=== PATIENT | female | born 1940 | race Caucasian/White ===

== ENCOUNTER → 2018-02-05 | Outpatient (CLI) | payer MEDICARE ==
[~2018-02-05] MED LIST: ACET500 PO; ALBIPROI INH; AMIT50 PO; ATEN25; ATEN25 PO; ATENOLOL PO; AZELASTINE137 MCG/0.; Ativan0.5 MG PO; BUPR100 PO; BUPR75; CALCIUM CITRAT1 EAC6 PO; CALCIUM/MAG/ZINC; CALMAGZIN PO; CHLO4 PO; CHOL10002 PO; CITA20; CLARITIN10 MG PO; CLON.5; CLON.5 PO; CODEINE; CONEST.625; D-MANNOSE1 GM PO; FLAX PO; FLAX SEED OIL1000 MG PO; FLAXSEED MEAL; FLONASE PO; FLUT.05NI; FOLI1 PO; Flonase 0.05% N16 GM INH; GABA300 PO; GABA400; GLUCHON PO; HYDACE7.5 PO; HYDSUL200; HYDSUL200 PO; MAGOXI400 PO; MELA3 PO; MELATONIN PO; METHOTREXATE; METHOTREXATE SQ; Motion Sickness25 M1 PO; OCUVITE ADULT1 EACH PO; OMEP40CA12; PROBIOTIC1 EAC2 PO; PROMETHAZINE; PSYL5.85P PO; Percocet 5-3251 EACH PO; SERT100 PO; SINUS PE DECONG10 MG PO; TRAZ50 PO; TRIM100 PO; VITAMIN C500 MG PO; Vitamin D PO; Zofran Odt4 MG SL; [UNRECOGNIZED DRUG - OTHER]
[2018-02-05 13:08] LABS: Source, Urine Clean Catch
[2018-02-05 15:34] LABS: Bilirubin, Urine Neg (Neg); Blood, Urine Neg (Neg); Glucose Qualitative, Urine Neg (Neg); Ketones, Urine Neg (Neg); Leukocyte Esterase, Urine Neg (Neg); Nitrite, Urine Neg (Neg); Protein, Urine Neg (Neg); Specific Gravity, Urine 1.005 (1.003-1.022); Urobilinogen, Urine NORM (Normal); pH, Urine 6.5 (5.0-8.0)
[2018-02-05 15:42] LABS: Appearance, Urine Clear (Clear); Color, Urine Yellow (P-Yellow)
== END ==
LOC: OLS 11:30 → LAB SHORT 11:30 → LAB FUT 02-05 12:20 → EDSTATUS 02-05 12:20
PROVIDERS: Physician Assistant
DX: N30.01 Acute cystitis with hematuria (principal)
CPT/HCPCS: 81003; 87086

== ENCOUNTER → 2018-03-17 | Outpatient (CLI) | payer MEDICARE ==
[~2018-03-17] MED LIST changes: -ACET500 PO; -Ativan0.5 MG PO; -BUPR100 PO; -CALCIUM CITRAT1 EAC6 PO; -CHOL10002 PO; -CLARITIN10 MG PO; -CLON.5 PO; -D-MANNOSE1 GM PO; -FLAX SEED OIL1000 MG PO; -Flonase 0.05% N16 GM INH; -GABA300 PO; -HYDSUL200 PO; -MAGOXI400 PO; -Motion Sickness25 M1 PO; -OCUVITE ADULT1 EACH PO; -PROBIOTIC1 EAC2 PO; -SERT100 PO; -SINUS PE DECONG10 MG PO; -TRIM100 PO; -VITAMIN C500 MG PO; -Zofran Odt4 MG SL
== END ==
LOC: LAB 16:09 → LAB SHORT 16:09
DX: N39.0 Urinary tract infection, site not specified (principal)
CPT/HCPCS: 87077; 87086; 87186

== ENCOUNTER 2018-12-18 11:25 | Emergency (ER) | payer MEDICARE ==
[~2018-12-18] VITALS: Ht 152.4 cm; Wt 54.4 kg
[~2018-12-18 11:25] MED LIST changes: +ACET500 PO; +Ativan0.5 MG PO; +BUPR100 PO; +CALCIUM CITRAT1 EAC6 PO; +CHOL10002 PO; +CLARITIN10 MG PO; +CLON.5 PO; +D-MANNOSE1 GM PO; +FLAX SEED OIL1000 MG PO; +Flonase 0.05% N16 GM INH; +GABA300 PO; +HYDSUL200 PO; +MAGOXI400 PO; +Motion Sickness25 M1 PO; +OCUVITE ADULT1 EACH PO; +PROBIOTIC1 EAC2 PO; +SERT100 PO; +SINUS PE DECONG10 MG PO; +TRIM100 PO; +VITAMIN C500 MG PO; +Zofran Odt4 MG SL
[2018-12-18 12:25] LABS: BASOPHILS ABSOLUTE AUTO 0.06 K/mm3 (0.00-0.23); BASOPHILS PERCENT AUTO 1 % (0-2); EOSINOPHILS ABSOLUTE AUTO 0.02 K/mm3 (0.00-0.68); EOSINOPHILS PERCENT AUTO 0 % (0-6); Hematocrit 39.3 % (33.0-51.0); Hemoglobin 12.9 g/dL (11.5-16.0); IMMATURE GRAN ABSOLUTE AUTO 0.03 K/mm3 (0.00-0.10); IMMATURE GRAN PERCENT AUTO 0 % (0-1); LYMPHOCYTES ABSOLUTE AUTO 0.82 K/mm3 (0.84-5.20); LYMPHOCYTES PERCENT AUTO 7 % (21-46); MONOCYTES ABSOLUTE AUTO 0.73 K/mm3 (0.16-1.47); MONOCYTES PERCENT AUTO 6 % (4-13); Mean Corpuscular HGB 30.8 pg (26.0-34.0); Mean Corpuscular HGB Conc 32.8 g/dL (31.5-36.5); Mean Corpuscular Volume 94 fL (80-100); Mean Platelet Volume 12.1 fL (9.1-12.4); NEUTROPHILS ABSOLUTE AUTO 9.81 K/mm3 (1.96-9.15); NEUTROPHILS PERCENT AUTO 86 % (41-73); Platelet Count 181 K/mm3 (150-400); RDW Coefficient Variation 11.8 % (11.7-14.2); RDW Standard Deviation 40.2 fL (35.1-46.3); Red Blood Cell Count 4.19 M/mm3 (3.80-5.20); White Blood Cell Count 11.47 K/mm3 (4.00-11.30)
[2018-12-18 12:45] LABS: Alanine Aminotransfer (ALT/SGP 19 U/L (12-78); Albumin/Globulin Ratio 1.1 (0.8-1.8); Alk Phos 69 U/L (50-136); Anion Gap 8 mmol/L (6-16); Aspartate Aminotrans (AST/SGOT 13 U/L (12-37); Blood Urea Nitrogen 14 mg/dL (8-24); Bun/Creatinine Ratio 16.4 (12.0-20.0); CO2, Blood 26 mmol/L (21-32); Calcium, Blood 8.7 mg/dL (8.5-10.1); Chloride, Blood 105 mmol/L (98-108); Creatinine, Blood 0.86 mg/dL (0.40-1.00); Globulin, Blood 3.7 g/dL (2.2-4.0); Glomerular Filtration Rate >60 (60-); Glucose, Blood 93 mg/dL (70-99); Potassium, Blood 3.6 mmol/L (3.5-5.5); Sodium, Blood 139 mmol/L (136-145); Total Protein, Blood 7.7 g/dL (6.4-8.2); Troponin I <0.015 ng/mL (0.000-0.040)
[2018-12-18] MEDS ORDERED: Lisinopril2.5 MG (14:08)
[2018-12-18] MEDS ORDERED: Amox Tr-K Clv1 EAC2 PO (14:08)
[2018-12-18 15:51] LABS: Source, Urine Clean Catch
[2018-12-18 16:01] LABS: Appearance, Urine Clear (Clear); Bilirubin, Urine Neg (Neg); Blood, Urine Neg (Neg); Color, Urine Yellow (P-Yellow); Glucose Qualitative, Urine Neg (Neg); Ketones, Urine Neg (Neg); Leukocyte Esterase, Urine Neg (Neg); Nitrite, Urine Neg (Neg); Protein, Urine 1+ (Neg); Urobilinogen, Urine NORM (Normal)
== END 2018-12-18 17:30 | disposition home or self-care (01) ==
LOC: ER 11:25
PROVIDERS: Physician Assistant
DX: R07.9 Chest pain, unspecified (principal); R19.7 Diarrhea, unspecified; I10 Essential (primary) hypertension; M06.9 Rheumatoid arthritis, unspecified; Z79.899 Other long term (current) drug therapy; Z88.8 Allergy status to other drugs, medicaments and biological substances
CPT/HCPCS: 36415; 71046; 80053; 83690; 83735; 83880; 84484; 85025; 93005; 93010; 99285-25; J7030

== ENCOUNTER → 2018-12-28 | Outpatient (CLI) | payer MEDICARE ==
[~2018-12-28] MED LIST changes: +Amox Tr-K Clv1 EAC2 PO; +Lisinopril2.5 MG
== END | disposition home or self-care (01) ==
LOC: LAB SHORT 10:10 → LAB 10:10
DX: N39.0 Urinary tract infection, site not specified (principal)
CPT/HCPCS: 87077; 87086; 87186

== ENCOUNTER → 2019-05-04 | Outpatient (CLI) | payer MEDICARE ==
[2019-05-04 13:37] LABS: Stool Occult Bld Immuno 1 Negative (NEGATIVE)
== END | disposition home or self-care (01) ==
LOC: LAB SHORT 07:00 → LAB 07:00 → LAB FUT 04-28 10:10
PROVIDERS: Family Medicine
DX: Z12.11 Encounter for screening for malignant neoplasm of colon (principal); R79.9 Abnormal finding of blood chemistry, unspecified; R63.4 Abnormal weight loss; D64.9 Anemia, unspecified
CPT/HCPCS: G0328

== ENCOUNTER → 2019-07-08 | Outpatient (CLI) | payer MEDICARE ==
[2019-07-08 11:24] LABS: Source, Urine Clean Catch
[2019-07-08 13:36] LABS: Bilirubin, Urine Neg (Neg); Blood, Urine 2+ (Neg); Glucose Qualitative, Urine Neg (Neg); Leukocyte Esterase, Urine 3+ (Neg); Nitrite, Urine Neg (Neg); Urobilinogen, Urine NORM (Normal)
[2019-07-08 13:44] LABS: Ketones, Urine 1+ (Neg); Protein, Urine 1+ (Neg); Specific Gravity, Urine 1.015 (1.003-1.022)
[2019-07-08 14:06] LABS: Appearance, Urine Hazy (Clear); Color, Urine Yellow (P-Yellow)
[2019-07-08 15:09] LABS: White Blood Cells, Urine 25-50 /hpf (0-5)
[2019-07-08 15:10] LABS: Bacteria Many /hpf; Squamous Epithelial Cells Rare /hpf (Few)
== END | disposition home or self-care (01) ==
LOC: LAB SRC 11:23 → LAB SHORT 11:23
PROVIDERS: Urology
DX: N39.0 Urinary tract infection, site not specified (principal); R39.14 Feeling of incomplete bladder emptying
CPT/HCPCS: 81001; 87077; 87086; 87186

== ENCOUNTER → 2019-10-31 | Outpatient (CLI) | payer MEDICARE ==
[~2019-10-31] MED LIST changes: +ACET325 PO; +BUPR100ER PO; +CONJUGATED ESTROGENS 0.625 MG VAG; +D-MANNOSE PO; -D-MANNOSE1 GM PO; +Flunisolide25 ML; +MAGNESIUM250 MG PO; +MELATONIN5 M1 PO; +MONT10T PO; +VANCOCIN HCL125 MG PO; +VITAMIN C500 M1 PO; +Vitamin E600 UNIT PO; +ZOFRAN4 MG PO
[2019-11-02 15:07] LABS: HPV 16 Negative (Negative); HPV 18 Negative (Negative); HPV OTHER HR TYPES Negative (Negative)
== END | disposition home or self-care (01) ==
LOC: LAB SHORT 13:21 → LAB 13:21
PROVIDERS: Nurse Practitioner Women's Health
DX: Z12.72 Encounter for screening for malignant neoplasm of vagina (principal); Z91.89 Other specified personal risk factors, not elsewhere classified
CPT/HCPCS: 87624; G0123

== ENCOUNTER 2019-12-01 08:37 | Emergency (ER) | payer MEDICARE ==
[~2019-12-01] VITALS: Ht 152.4 cm; Wt 49.9 kg
[~2019-12-01 08:37] MED LIST changes: -ACET325 PO; -BUPR100ER PO; -CONJUGATED ESTROGENS 0.625 MG VAG; -D-MANNOSE PO; -Flunisolide25 ML; -MAGNESIUM250 MG PO; -MONT10T PO; -OCUVITE ADULT1 EACH PO; -PROBIOTIC1 EAC2 PO; -VANCOCIN HCL125 MG PO; -VITAMIN C500 M1 PO; -Vitamin E600 UNIT PO; -ZOFRAN4 MG PO
[2019-12-01 09:17] LABS: BASOPHILS ABSOLUTE AUTO 0.05 K/mm3 (0.00-0.23); BASOPHILS PERCENT AUTO 0 % (0-2); EOSINOPHILS PERCENT AUTO 0 % (0-6); Hematocrit 44.1 % (33.0-51.0); Hemoglobin 14.4 g/dL (11.5-16.0); IMMATURE GRAN PERCENT AUTO 1 % (0-1); LYMPHOCYTES ABSOLUTE AUTO 0.64 K/mm3 (0.84-5.20); LYMPHOCYTES PERCENT AUTO 4 % (21-46); MONOCYTES ABSOLUTE AUTO 0.73 K/mm3 (0.16-1.47); MONOCYTES PERCENT AUTO 4 % (4-13); Mean Corpuscular HGB 30.3 pg (26.0-34.0); Mean Corpuscular HGB Conc 32.7 g/dL (31.5-36.5); Mean Corpuscular Volume 93 fL (80-100); Mean Platelet Volume 11.8 fL (9.1-12.4); NEUTROPHILS ABSOLUTE AUTO 16.36 K/mm3 (1.96-9.15); NEUTROPHILS PERCENT AUTO 91 % (41-73); Platelet Count 232 K/mm3 (150-400); RDW Coefficient Variation 11.9 % (11.7-14.2); Red Blood Cell Count 4.75 M/mm3 (3.80-5.20); White Blood Cell Count 17.88 K/mm3 (4.00-11.30)
[2019-12-01 09:35] LABS: Alanine Aminotransfer (ALT/SGP 21 U/L (12-78); Alk Phos 65 U/L (50-136); Anion Gap 12 mmol/L (6-16); Aspartate Aminotrans (AST/SGOT 17 U/L (12-37); Bilirubin, Total 1.3 mg/dL (0.1-1.0); Blood Urea Nitrogen 20 mg/dL (8-24); Bun/Creatinine Ratio 21.8 (12.0-20.0); CO2, Blood 24 mmol/L (21-32); Calcium, Blood 9.5 mg/dL (8.5-10.1); Chloride, Blood 104 mmol/L (98-108); Creatinine, Blood 0.92 mg/dL (0.40-1.00); Glomerular Filtration Rate >60 (60-); Glucose, Blood 143 mg/dL (70-99); Potassium, Blood 3.6 mmol/L (3.5-5.5); Sodium, Blood 140 mmol/L (136-145); Troponin I <0.015 ng/mL (0.000-0.040)
[2019-12-01] MEDS ORDERED: MONT10T PO (09:41)
[2019-12-01 10:55] LABS: Source, Urine Voided
[2019-12-01 11:18] LABS: Appearance, Urine Clear (Clear); Bilirubin, Urine Neg (Neg); Blood, Urine 1+ (Neg); Color, Urine Yellow (P-Yellow); Glucose Qualitative, Urine Neg (Neg); Ketones, Urine 1+ (Neg); Leukocyte Esterase, Urine 1+ (Neg); Nitrite, Urine Neg (Neg); Protein, Urine 2+ (Neg); Urobilinogen, Urine NORM (Normal)
[2019-12-01] MEDS ORDERED: ZOFRAN4 MG PO (11:23)
[2019-12-01 11:51] LABS: Bacteria Many /hpf; Squamous Epithelial Cells Rare /hpf (Few); White Blood Cells, Urine 25-50 /hpf (0-5)
[2019-12-01 11:52] LABS: Amorphous Light (0-Heavy)
[2019-12-02] MEDS ORDERED: BUPR100ER PO (13:32)
[2019-12-02] MEDS ORDERED: Flunisolide25 ML (13:33)
[2019-12-02] MEDS ORDERED: TRIM100 PO (13:36)
[2019-12-02] MEDS ORDERED: VITAMIN C500 M1 PO (13:36)
[2019-12-02] MEDS ORDERED: CONJUGATED ESTROGENS 0.625 MG VAG (14:32)
[2019-12-02] MEDS ORDERED: HYDSUL200 PO (15:19)
[2019-12-02] MEDS ORDERED: GABA300 PO (15:22)
[2019-12-02] MEDS ORDERED: OCUVITE ADULT1 EACH PO (15:24)
[2019-12-02] MEDS ORDERED: MAGNESIUM250 MG PO (15:25)
[2019-12-02] MEDS ORDERED: D-MANNOSE PO (15:26)
[2019-12-02] MEDS ORDERED: PROBIOTIC1 EAC2 PO (15:27)
[2019-12-02] MEDS ORDERED: Vitamin E600 UNIT PO (15:28)
== END 2019-12-01 11:40 | disposition home or self-care (01) ==
LOC: ER 08:37
PROVIDERS: Emergency Medicine
DX: K52.9 Noninfective gastroenteritis and colitis, unspecified (principal); I10 Essential (primary) hypertension; M06.9 Rheumatoid arthritis, unspecified; G62.9 Polyneuropathy, unspecified; Z88.8 Allergy status to other drugs, medicaments and biological substances; Z79.899 Other long term (current) drug therapy
CPT/HCPCS: 36415; 76705; 80053; 81001; 83690; 84484; 85025; 87077; 87086; 87186; 93005; 93010; 96361; 96374; 96375; 99284-25; J1170; J2405; J7120; P9612

== ENCOUNTER 2019-12-02 10:03 | Inpatient (IN) | payer MEDICARE ==
[~2019-12-02] VITALS: Ht 152.4 cm; Wt 48.4 kg
[~2019-12-02 10:03] MED LIST changes: +MONT10T PO; +ZOFRAN4 MG PO
[2019-12-02 11:49] LABS: BASOPHILS ABSOLUTE AUTO 0.02 K/mm3 (0.00-0.23); BASOPHILS PERCENT AUTO 0 % (0-2); EOSINOPHILS PERCENT AUTO 0 % (0-6); Hematocrit 41.3 % (33.0-51.0); Hemoglobin 13.8 g/dL (11.5-16.0); IMMATURE GRAN ABSOLUTE AUTO 0.05 K/mm3 (0.00-0.10); IMMATURE GRAN PERCENT AUTO 0 % (0-1); LYMPHOCYTES ABSOLUTE AUTO 0.73 K/mm3 (0.84-5.20); LYMPHOCYTES PERCENT AUTO 6 % (21-46); MONOCYTES ABSOLUTE AUTO 0.91 K/mm3 (0.16-1.47); MONOCYTES PERCENT AUTO 7 % (4-13); Mean Corpuscular HGB 30.4 pg (26.0-34.0); Mean Corpuscular HGB Conc 33.4 g/dL (31.5-36.5); Mean Corpuscular Volume 91 fL (80-100); Mean Platelet Volume 12.7 fL (9.1-12.4); NEUTROPHILS ABSOLUTE AUTO 10.92 K/mm3 (1.96-9.15); NEUTROPHILS PERCENT AUTO 86 % (41-73); Platelet Count 238 K/mm3 (150-400); RDW Standard Deviation 39.9 fL (35.1-46.3); Red Blood Cell Count 4.54 M/mm3 (3.80-5.20); White Blood Cell Count 12.63 K/mm3 (4.00-11.30)
[2019-12-02 12:10] LABS: Alanine Aminotransfer (ALT/SGP 22 U/L (12-78); Albumin, Blood 4.1 g/dL (3.4-5.0); Albumin/Globulin Ratio 1.1 (0.8-1.8); Alk Phos 59 U/L (50-136); Anion Gap 14 mmol/L (6-16); Aspartate Aminotrans (AST/SGOT 19 U/L (12-37); Bilirubin, Total 1.4 mg/dL (0.1-1.0); Blood Urea Nitrogen 26 mg/dL (8-24); Bun/Creatinine Ratio 31.1 (12.0-20.0); CO2, Blood 21 mmol/L (21-32); Calcium, Blood 9.4 mg/dL (8.5-10.1); Chloride, Blood 102 mmol/L (98-108); Creatinine, Blood 0.84 mg/dL (0.40-1.00); Globulin, Blood 3.9 g/dL (2.2-4.0); Glomerular Filtration Rate >60 (60-); Glucose, Blood 132 mg/dL (70-99); Potassium, Blood 2.5 mmol/L (3.5-5.5); Sodium, Blood 137 mmol/L (136-145)
[2019-12-02] MEDS ORDERED: BUPR100ER PO (13:32)
[2019-12-02] MEDS ORDERED: Flunisolide25 ML (13:33)
[2019-12-02] MEDS ORDERED: TRIM100 PO (13:36)
[2019-12-02] MEDS ORDERED: VITAMIN C500 M1 PO (13:36)
[2019-12-02] MEDS ORDERED: CONJUGATED ESTROGENS 0.625 MG VAG (14:32)
[2019-12-02] MEDS ORDERED: HYDSUL200 PO (15:19)
[2019-12-02] MEDS ORDERED: GABA300 PO (15:22)
[2019-12-02] MEDS ORDERED: OCUVITE ADULT1 EACH PO (15:24)
[2019-12-02] MEDS ORDERED: MAGNESIUM250 MG PO (15:25)
[2019-12-02] MEDS ORDERED: D-MANNOSE PO (15:26)
[2019-12-02] MEDS ORDERED: PROBIOTIC1 EAC2 PO (15:27)
[2019-12-02] MEDS ORDERED: Vitamin E600 UNIT PO (15:28)
--- NOTE | 2019-12-02 18:33 | NUR ---
ADMIT NEW ER ADMIT WITH SBO. NGT TO LIS PLACED IN ER WITH MODERATE GREEN OUTPUT. PT NPO. 1 SBA WHEN OOB. PT IS ALERT AND ORIENTED TO SELF, FAMILY, AND FOLLOWING DIRECTIONS, BUT IS FORGETFUL AT TIMES. BED ALARM IN PLACE. PT DOES DENY PAIN AND N/V AT THIS TIME. IVF INFUSING PER ORDERS. CALL LIGHT WITHIN REACH.
--- NOTE | 2019-12-03 04:49 | NUR ---
SHIFT SUMMARY NO ACUTE CHANGES T/O SHIFT, MENTATION AT BASELINE W/VSS. NG IN PLACE AND DRAINING DARK GREEN/BROWN FLUID. DENIES ANY N/V OR PAIN. IS NPO AND HAS IVF RUNNING PER ORDERS. VOIDING AND USES BSC WITH 1 ASSIST. CURRENTLY RESTING IN BED WITH CALL LIGHT IN REACH. WILL CONT. MONITOR AND GIVE REPORT TO ONCOMING RN.
[2019-12-03 04:56] LABS: BASOPHILS ABSOLUTE AUTO 0.01 K/mm3 (0.00-0.23); BASOPHILS PERCENT AUTO 0 % (0-2); EOSINOPHILS PERCENT AUTO 0 % (0-6); Hematocrit 40.2 % (33.0-51.0); Hemoglobin 12.9 g/dL (11.5-16.0); IMMATURE GRAN ABSOLUTE AUTO 0.03 K/mm3 (0.00-0.10); IMMATURE GRAN PERCENT AUTO 0 % (0-1); LYMPHOCYTES ABSOLUTE AUTO 0.62 K/mm3 (0.84-5.20); LYMPHOCYTES PERCENT AUTO 6 % (21-46); MONOCYTES ABSOLUTE AUTO 0.84 K/mm3 (0.16-1.47); MONOCYTES PERCENT AUTO 8 % (4-13); Mean Corpuscular HGB 30.6 pg (26.0-34.0); Mean Corpuscular HGB Conc 32.1 g/dL (31.5-36.5); Mean Platelet Volume 12.3 fL (9.1-12.4); NEUTROPHILS ABSOLUTE AUTO 9.73 K/mm3 (1.96-9.15); NEUTROPHILS PERCENT AUTO 87 % (41-73); Platelet Count 166 K/mm3 (150-400); RDW Coefficient Variation 12.2 % (11.7-14.2); RDW Standard Deviation 42.6 fL (35.1-46.3); Red Blood Cell Count 4.21 M/mm3 (3.80-5.20); White Blood Cell Count 11.23 K/mm3 (4.00-11.30)
[2019-12-03 04:58] LABS: Mean Corpuscular Volume 96 fL (80-100)
[2019-12-03 05:08] LABS: International Normalized Ratio 1.14; Prothrombin Time Results 12.1 Sec (9.7-11.5)
[2019-12-03 05:12] LABS: Alanine Aminotransfer (ALT/SGP 18 U/L (12-78); Albumin, Blood 3.7 g/dL (3.4-5.0); Alk Phos 52 U/L (50-136); Anion Gap 7 mmol/L (6-16); Aspartate Aminotrans (AST/SGOT 17 U/L (12-37); Bilirubin, Total 0.8 mg/dL (0.1-1.0); Blood Urea Nitrogen 26 mg/dL (8-24); Bun/Creatinine Ratio 31.4 (12.0-20.0); CO2, Blood 30 mmol/L (21-32); Calcium, Blood 9.1 mg/dL (8.5-10.1); Chloride, Blood 107 mmol/L (98-108); Creatinine, Blood 0.83 mg/dL (0.40-1.00); Globulin, Blood 3.7 g/dL (2.2-4.0); Glomerular Filtration Rate >60 (60-); Glucose, Blood 96 mg/dL (70-99); Potassium, Blood 3.3 mmol/L (3.5-5.5); Sodium, Blood 144 mmol/L (136-145); Total Protein, Blood 7.4 g/dL (6.4-8.2)
[2019-12-03] MEDS ORDERED: HYDSUL200 PO (07:43)
--- NOTE | 2019-12-03 17:49 | NUR ---
SUMMARY NO ACUTE CHANGES T/O SHIFT. PT HYPERTENSIVE THIS AFTERNOON, OBTAINED ORDERS AND MEDICATED W/HYDRALAZINE. NG PUTTING OUT DARK BROWN LIQUID. PT USING ORAL SWABS FOR COMFORT. APPEARS CONFUSED AND FORGETFUL AT TIMES BUT HAS USED CALL LIGHT APPROPRIATELY. BED ALARM ON.
[2019-12-04 04:55] LABS: Hemoglobin 11.7 g/dL (11.5-16.0); Mean Corpuscular HGB 30.9 pg (26.0-34.0); Mean Corpuscular HGB Conc 31.6 g/dL (31.5-36.5); Mean Corpuscular Volume 98 fL (80-100); Mean Platelet Volume 12.6 fL (9.1-12.4); Platelet Count 144 K/mm3 (150-400); RDW Standard Deviation 43.2 fL (35.1-46.3); Red Blood Cell Count 3.79 M/mm3 (3.80-5.20); White Blood Cell Count 9.43 K/mm3 (4.00-11.30)
[2019-12-04 05:10] LABS: Anion Gap 10 mmol/L (6-16); Blood Urea Nitrogen 27 mg/dL (8-24); Bun/Creatinine Ratio 42.6 (12.0-20.0); CO2, Blood 24 mmol/L (21-32); Calcium, Blood 8.1 mg/dL (8.5-10.1); Chloride, Blood 115 mmol/L (98-108); Creatinine, Blood 0.63 mg/dL (0.40-1.00); Glomerular Filtration Rate >60 (60-); Glucose, Blood 66 mg/dL (70-99); Potassium, Blood 2.8 mmol/L (3.5-5.5); Sodium, Blood 149 mmol/L (136-145)
--- NOTE | 2019-12-04 08:04 | NUR ---
SUMMARY PT CONTIUES WITH SIGNIFICANT OUTPUT PER NG. NO FLATUS YET. ANXIOUS TO GO HOME. ADVISED WILL HAVE SPEAK WITH HER DURING ROUNDS AND WILL DISCUSS HIS TX PLAN.
--- NOTE | 2019-12-04 17:33 | NUR ---
SHIFT SUMMARY PT IS A/O BUT SEEMS TO HAVE MILD CONFUSION/FORGETFULLNESS AT TIMES. SHE HAS BEEN UP TO THE CHAIR AND WALKED DOWN THE HALLWAY TODAY WITH STANDBY ASSIST. NG TUBE IN PLACE TO LOW INT. SUCTION PER ORDERS. PT HAS REPORTED NO PAIN, JUST GENERALIZED WEAKNESS. HAS BEEN AT BEDSIDE TODAY. ASSISTED WITH ADL'S PRN.
--- NOTE | 2019-12-05 06:23 | NUR ---
PT HAD NO SIG CHANGES T/O NIGHT. BP ELEVATED, PT DENIED CP/PRESSURE. HR SINUS W/BBB PER TELE MONTIOR. ABD STILL MILDLY DISTENDED. BT HYPO, PT REP NO FLATUS YET. NGT PUT OUT APPX 500ML DARK GREEN DRNG. PT DENIED N/V. PT UP OOB W/SBA, RUDOLPH WELL, IS VOIDING URINE W/O DIFFICULTY. PT USING CALL LIGHT FOR ASSISTANCE, BED ALARM ON FOR SAFETY.
[2019-12-05 08:24] LABS: Hematocrit 40.4 % (33.0-51.0); Hemoglobin 12.7 g/dL (11.5-16.0); Mean Corpuscular HGB 30.4 pg (26.0-34.0); Mean Corpuscular HGB Conc 31.4 g/dL (31.5-36.5); Mean Corpuscular Volume 97 fL (80-100); Mean Platelet Volume 12.4 fL (9.1-12.4); Platelet Count 178 K/mm3 (150-400); RDW Coefficient Variation 11.7 % (11.7-14.2); RDW Standard Deviation 41.9 fL (35.1-46.3); Red Blood Cell Count 4.18 M/mm3 (3.80-5.20); White Blood Cell Count 12.35 K/mm3 (4.00-11.30)
[2019-12-05 08:47] LABS: Anion Gap 10 mmol/L (6-16); Blood Urea Nitrogen 18 mg/dL (8-24); Bun/Creatinine Ratio 29.8 (12.0-20.0); CO2, Blood 26 mmol/L (21-32); Calcium, Blood 8.3 mg/dL (8.5-10.1); Chloride, Blood 114 mmol/L (98-108); Glomerular Filtration Rate >60 (60-); Glucose, Blood 71 mg/dL (70-99); Potassium, Blood 2.7 mmol/L (3.5-5.5); Sodium, Blood 150 mmol/L (136-145)
--- NOTE | 2019-12-05 14:45 | NUR ---
Today on 12/05/2019 I asked pt. if I could give care to them as a nursing informatics specialist on 12/06/2019. The patient gave permission for care on 12/06/2019.
--- NOTE | 2019-12-05 19:51 | NUR ---
SHIFT SUMMARY PT HAD SBFT TODAY AND FELT AWFUL AFTER. NAUSEA AND BLOAT RESOLVED AFTER BEING CONNECTED TO NGT AND ALLOWING DECOMPRESSION. DENIED PAIN T/O SHIFT. NAUSEA RESOLVED AFTER IMAGING EPISODE. FACE BECAME FLUSHED THIS AFTERNOON AND REPORTED FEELING POORLY BUT THIS RESOLVED AFTER A SHORT TIME. PPN STARTED.
[2019-12-06 04:15] LABS: BASOPHILS ABSOLUTE AUTO 0.03 K/mm3 (0.00-0.23); BASOPHILS PERCENT AUTO 0 % (0-2); EOSINOPHILS ABSOLUTE AUTO 0.03 K/mm3 (0.00-0.68); EOSINOPHILS PERCENT AUTO 0 % (0-6); Hematocrit 42.5 % (33.0-51.0); Hemoglobin 13.5 g/dL (11.5-16.0); IMMATURE GRAN ABSOLUTE AUTO 0.09 K/mm3 (0.00-0.10); IMMATURE GRAN PERCENT AUTO 1 % (0-1); LYMPHOCYTES ABSOLUTE AUTO 1.13 K/mm3 (0.84-5.20); LYMPHOCYTES PERCENT AUTO 6 % (21-46); MONOCYTES ABSOLUTE AUTO 1.36 K/mm3 (0.16-1.47); MONOCYTES PERCENT AUTO 8 % (4-13); Mean Corpuscular HGB 30.1 pg (26.0-34.0); Mean Corpuscular HGB Conc 31.8 g/dL (31.5-36.5); Mean Corpuscular Volume 95 fL (80-100); NEUTROPHILS ABSOLUTE AUTO 14.92 K/mm3 (1.96-9.15); NEUTROPHILS PERCENT AUTO 85 % (41-73); Platelet Count 197 K/mm3 (150-400); RDW Coefficient Variation 11.6 % (11.7-14.2); RDW Standard Deviation 40.2 fL (35.1-46.3); Red Blood Cell Count 4.48 M/mm3 (3.80-5.20); White Blood Cell Count 17.56 K/mm3 (4.00-11.30)
[2019-12-06 04:34] LABS: Anion Gap 4 mmol/L (6-16); Blood Urea Nitrogen 23 mg/dL (8-24); Bun/Creatinine Ratio 38.5 (12.0-20.0); CO2, Blood 33 mmol/L (21-32); Calcium, Blood 8.9 mg/dL (8.5-10.1); Chloride, Blood 111 mmol/L (98-108); Glomerular Filtration Rate >60 (60-); Glucose, Blood 183 mg/dL (70-99); Magnesium, Blood 2.4 mg/dL (1.6-2.4); Phosphorus, Blood 1.9 mg/dL (2.5-4.9); Potassium, Blood 3.4 mmol/L (3.5-5.5); Sodium, Blood 148 mmol/L (136-145); Triglycerides 114 mg/dL (30-160)
--- NOTE | 2019-12-06 06:35 | NUR ---
tHIS PATIENT HAS HAD NO SIGNIFICANT COMPLAINTS OF PAIN OR DISCOMFORT. SHE HAS BEEN ABLE TO GET OOB TO THE BSC WITH ASSISSTANCE TO VOID. PATIENT HAS BEEN CHEWING ON ICE, NG TUBE TO LIS WITH GREEN FLUID REMOVED.
--- NOTE | 2019-12-06 08:55 | NUR ---
PT TO DAY SURGERY AT APROX 0855 ON BED.
--- NOTE | 2019-12-06 09:13 | NUR ---
History, Chart, Medications and Allergies reviewed before start of procedure.Patient confirms NPO status and agrees with scheduled surgery. Surgical site prepped with 2% Chlorhexidine cloth wipe. Lungs clear T/O to Auscultation.
--- NOTE | 2019-12-06 09:29 | NUR ---
PATIENT RETURNED TO ROOM CASE CANCELLED BY DOCTOR
--- NOTE | 2019-12-06 14:03 | NUR ---
Patient is sitting up in bed and alert. Patient tells me that she is having a very difficult time and that she does not know what is happening. Patient's spouse, Dalton, is bedside and he helps me understand what patient is saying. 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 He also explains how he had a terrible experience in [employer] and left and lost his ordination papaers and then could not continue his work. He had asked that I come visit patient because she is aggitated. I listen empathically, and provide a calming presence and prayer. Patient responds well and shows a further movement towards reduced stress. I will continue to remain available to patient and family.
--- NOTE | 2019-12-06 19:30 | NUR ---
RECVD REPORT FROM PREVIOUS SHIFT RN, PT SITTING UP IN BED, A/O X 4, PLEASANT/COOPERATIVE, IN ROOM. BED IN LOWEST POSITION, CALL LIGHT WITHIN REACH, BED RAILS UP X 2.
--- NOTE | 2019-12-06 19:42 | NUR ---
SHIFT SUMMARY PT HAS MADE LITTLE PROGRESS THIS SHIFT. REPORTED PASSING GAS ONCE THIS EVENING. NG TUBE HAD 325 GREEN FLUID OUT THIS SHIFT. PPN PER EMAR. PLAN IS TO REPEAT ABDOMINAL XRAY IN THE AM AND IF PT HAS HAD NO RESOLUTION OF SYMPTOMS THEN DR WADE WILL PLAN ON TAKING PT TO OR. SBA TO BSC, VOIDING WELL. MEPILEX IN PLACE ON COXYX.
[2019-12-07 04:35] LABS: Anion Gap 5 mmol/L (6-16); Blood Urea Nitrogen 18 mg/dL (8-24); Bun/Creatinine Ratio 32.3 (12.0-20.0); CO2, Blood 32 mmol/L (21-32); Calcium, Blood 8.5 mg/dL (8.5-10.1); Chloride, Blood 106 mmol/L (98-108); Creatinine, Blood 0.56 mg/dL (0.40-1.00); Glomerular Filtration Rate >60 (60-); Glucose, Blood 132 mg/dL (70-99); Potassium, Blood 3.4 mmol/L (3.5-5.5); Sodium, Blood 143 mmol/L (136-145)
--- NOTE | 2019-12-07 05:51 | NUR ---
shift summary: vss, no acute changes, pt remained a/o x 4, pleasant/cooperative, remained NPO except for ice chips. pt denies n/v, denies pain, passed flatus x 1 start of shift, belched x 2. pt voided >350 ml this shift. pt appears to be sleeping on nurse rounding, calls appropriately. NG tube with 200 ml dark green liquid out.
--- NOTE | 2019-12-07 07:35 | NUR ---
PT LAYING ON HER SIDE REPORTS MIN PAIN AT THIS TIME STATED SHE HAD HER XRAY THIS MORNING AWAITING RESULTS
--- NOTE | 2019-12-07 08:00 | NUR ---
DR WADE CALLED UPDATE GIVEN PT HAD ONE FLATUS LAST NIGHT
--- NOTE | 2019-12-07 09:55 | NUR ---
pt transported to day surg via bed asked if they would like the iv kcl to go iv cipro infusing
--- NOTE | 2019-12-07 11:28 | NUR ---
PATIENT BROUGHT FROM THE FLOOR AT 1000, PREPAREDFOR SURGERY. Surgical site prepped with 2% Chlorhexidine cloth wipe. History, Chart, Medications and Allergies reviewed before start of procedure.Lungs clear T/O to Auscultation. Music therapy session facilitated. I provided soft acoustic guitar music for augmentation of well being, relaxation, leisure or non-pharmaceutical pain or stress alleviation. Patient confirms NPO status and agrees with scheduled surgery.
--- NOTE | 2019-12-07 13:35 | NUR ---
12/07/19 1334 Shady Thompson ALL ENTRIES BY ORD.BRANDON WERE ACTUALLY ENTERED BY ORD.YULY.
--- NOTE | 2019-12-07 15:33 | NUR ---
Spiritual care visit conducted. I sat with patient's spouse, Dalton, while patient is in surgery. Dalton fills me in on patient's medical history and how the patient has managed to deal with her health issues. I conduct a life review of Dalton's life including how patient and Dalton met and the relationship history. Dalton tells me about his education, his careers and his spiritual journey. I provide a calming presence and a distraction for Dalton until his comes out from surgery. Dalton is voices appreciation for my time and care. I will continue to remain available to patient and family.
--- NOTE | 2019-12-07 15:46 | NUR ---
PT ARRIVED BACK TO ROOM S/P SMALL BOWEL RESCTION PT HAS MIDLINE WITH MARCOS WOUND VAC SCANT AMT OF SANG DRAINAGE PT RESTING WITH HER KNEES PULLED UP HOOKED NGT UP TO SX HAS THICK DK GREEN DRAINAGE PT MOANED AFEW TIMES AND IS SHAKING BUNDLED UP WITH BLANKETS WILL CONT TO MONITOR
--- NOTE | 2019-12-07 16:20 | NUR ---
offered pain meds pt declined no nausea
--- NOTE | 2019-12-07 17:25 | NUR ---
PT JUST WOKE UP REQ PAIN MEDS FENT GIVEN
[2019-12-08 04:29] LABS: BASOPHILS ABSOLUTE AUTO 0.03 K/mm3 (0.00-0.23); BASOPHILS PERCENT AUTO 0 % (0-2); EOSINOPHILS ABSOLUTE AUTO 0.02 K/mm3 (0.00-0.68); EOSINOPHILS PERCENT AUTO 0 % (0-6); Hemoglobin 12.7 g/dL (11.5-16.0); IMMATURE GRAN ABSOLUTE AUTO 0.08 K/mm3 (0.00-0.10); IMMATURE GRAN PERCENT AUTO 1 % (0-1); LYMPHOCYTES ABSOLUTE AUTO 1.35 K/mm3 (0.84-5.20); LYMPHOCYTES PERCENT AUTO 10 % (21-46); MONOCYTES ABSOLUTE AUTO 0.68 K/mm3 (0.16-1.47); MONOCYTES PERCENT AUTO 5 % (4-13); Mean Corpuscular HGB 30.3 pg (26.0-34.0); Mean Corpuscular HGB Conc 31.8 g/dL (31.5-36.5); Mean Corpuscular Volume 96 fL (80-100); NEUTROPHILS PERCENT AUTO 84 % (41-73); Platelet Count 129 K/mm3 (150-400); RDW Coefficient Variation 11.9 % (11.7-14.2); RDW Standard Deviation 41.3 fL (35.1-46.3); Red Blood Cell Count 4.19 M/mm3 (3.80-5.20); White Blood Cell Count 13.46 K/mm3 (4.00-11.30)
[2019-12-08 04:54] LABS: Anion Gap 6 mmol/L (6-16); Blood Urea Nitrogen 22 mg/dL (8-24); Bun/Creatinine Ratio 30.2 (12.0-20.0); CO2, Blood 29 mmol/L (21-32); Calcium, Blood 7.9 mg/dL (8.5-10.1); Chloride, Blood 109 mmol/L (98-108); Creatinine, Blood 0.73 mg/dL (0.40-1.00); Glomerular Filtration Rate >60 (60-); Glucose, Blood 128 mg/dL (70-99); Magnesium, Blood 1.9 mg/dL (1.6-2.4); Phosphorus, Blood 3.6 mg/dL (2.5-4.9); Potassium, Blood 4.2 mmol/L (3.5-5.5); Sodium, Blood 144 mmol/L (136-145)
--- NOTE | 2019-12-08 18:40 | NUR ---
PT REPORTED PAIN AT [facility] AND THE FEELING OF NEEDING TO VOID AND HAVE BM. FORBES CATH DC'D AT ABOUT 1810. PT HELPED ONTO COMMODE, PT ABLE TO VOID AND HAVE SMALL BM, REPORTED DECREASED PAIN AND FEELING BETTER. WILL CTM
--- NOTE | 2019-12-08 19:11 | NUR ---
SUMMARY: NO ACUTE CHANGE TODAY. PT ABLE GET UP TO CHAIR AND WALK IN HALLS. MEDICATED FOR ABD PAIN PER EMAR. PT HAS DENIED NAUSEA, NGT TO LIS. PPN INFUSING. SURGICAL DRESSING WNL. PT DID HAVE LIQUID BM TONIGHT. NO SAFETY CONCERNS AT THIS TIME. REPORT GIVEN TO FANY NIXON
[2019-12-09 04:54] LABS: Anion Gap 6 mmol/L (6-16); Blood Urea Nitrogen 19 mg/dL (8-24); Bun/Creatinine Ratio 29.9 (12.0-20.0); CO2, Blood 29 mmol/L (21-32); Calcium, Blood 8.2 mg/dL (8.5-10.1); Chloride, Blood 105 mmol/L (98-108); Creatinine, Blood 0.64 mg/dL (0.40-1.00); Glomerular Filtration Rate >60 (60-); Glucose, Blood 125 mg/dL (70-99); Phosphorus, Blood 3.1 mg/dL (2.5-4.9); Potassium, Blood 3.7 mmol/L (3.5-5.5); Sodium, Blood 140 mmol/L (136-145)
--- NOTE | 2019-12-09 07:39 | NUR ---
SUMMARY NO ACUTE CHANGES TONIGHT.VOIDING VIA BSC/PULLUPS.
--- NOTE | 2019-12-09 13:47 | NUR ---
Spiritual care visit conducted. Patient is sleeping and , Dalton, is bedside. 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 Dalton catches me up on the progress of the patient and says that the staff may recommend patient going to a rehab facility. Dalton states that patient will not like this at all. I encourage self-care for Dalton, normalize Dalton's experience and provide companionship. I will continue to remain available to patient and family.
--- NOTE | 2019-12-09 18:34 | NUR ---
SUMMARY: NO ACUTE CHANGE TODAY. VSS, A/O, TELE WNL. PT WORKED WITH PT/OT, CONTINUES TO BE VERY WEAK. ENCOURAGING MOBILITY, DEEP BREATHING. PT DENIES PASSING GAS, NO BM TODAY. MINIMAL OUT OF NGT. MEDICATED FOR PAIN PRN, HAS DENIED NAUSEA. WILL CTM AND REPORT TO NOC FANY.
--- NOTE | 2019-12-10 04:43 | NUR ---
PATIENT STATED THAT SHE WAS ABLE TO SLEEP FOR A FEW HOURS, WOKE WITH A SCARY DREAM. PT HAS ABDOMINAL PAIN AN THROAT PAIN THAT IS RELIEVED WITH IV PAIN MEDICATION TWICE THIS SHIFT. hER COUGH IS PRODUCTIVE AND PATIENT IS ABLE TO AT LEAST CLEAR SECRETIONS AND SWALLOW MUCUS. NG TO LIS, DRAINING GREEN FLUID. SHE HAS COMPLAINED OF PAIN WITH URINATION THIS MORNING, URINE IS YELLOW WITHOUT A STRONG ODOR. NO OTHER ACUTE CHANGES.
[2019-12-10 04:56] LABS: BASOPHILS ABSOLUTE AUTO 0.04 K/mm3 (0.00-0.23); BASOPHILS PERCENT AUTO 0 % (0-2); EOSINOPHILS ABSOLUTE AUTO 0.08 K/mm3 (0.00-0.68); EOSINOPHILS PERCENT AUTO 1 % (0-6); Hematocrit 34.9 % (33.0-51.0); Hemoglobin 11.6 g/dL (11.5-16.0); IMMATURE GRAN ABSOLUTE AUTO 0.17 K/mm3 (0.00-0.10); IMMATURE GRAN PERCENT AUTO 1 % (0-1); LYMPHOCYTES ABSOLUTE AUTO 1.06 K/mm3 (0.84-5.20); LYMPHOCYTES PERCENT AUTO 6 % (21-46); MONOCYTES PERCENT AUTO 4 % (4-13); Mean Corpuscular HGB 30.9 pg (26.0-34.0); Mean Corpuscular HGB Conc 33.2 g/dL (31.5-36.5); Mean Corpuscular Volume 93 fL (80-100); NEUTROPHILS ABSOLUTE AUTO 14.56 K/mm3 (1.96-9.15); NEUTROPHILS PERCENT AUTO 88 % (41-73); Platelet Count 105 K/mm3 (150-400); RDW Coefficient Variation 11.6 % (11.7-14.2); RDW Standard Deviation 39.7 fL (35.1-46.3); Red Blood Cell Count 3.76 M/mm3 (3.80-5.20); White Blood Cell Count 16.61 K/mm3 (4.00-11.30)
[2019-12-10 05:12] LABS: Anion Gap 7 mmol/L (6-16); Blood Urea Nitrogen 16 mg/dL (8-24); Bun/Creatinine Ratio 27.7 (12.0-20.0); CO2, Blood 26 mmol/L (21-32); Calcium, Blood 8.1 mg/dL (8.5-10.1); Chloride, Blood 105 mmol/L (98-108); Creatinine, Blood 0.58 mg/dL (0.40-1.00); Glomerular Filtration Rate >60 (60-); Glucose, Blood 119 mg/dL (70-99); Potassium, Blood 3.8 mmol/L (3.5-5.5); Sodium, Blood 138 mmol/L (136-145)
--- NOTE | 2019-12-10 19:29 | NUR ---
PT HAS BEEN STABLE THIS SHIFT. DC'D NGT. NO NAUSEA. PT RUDOLPH SIPS CLEARS. CONT IV NUTRITION. PT WORKED WELL WITH THERAPY TO SIT IN CHAIR. AMBULATED HALLWAY X2. PT SLIGHTLY CONFUSED AT TIMES, CALLS APPROPRIATELY. ATTENDS ON FOR INCONTINENCE. MARCOS DRESSING INTACT WITH DRY DRAINAGE. SPOUSE AT BEDSIDE, ATTENTIVE.
[2019-12-11 05:24] LABS: Anion Gap 7 mmol/L (6-16); Blood Urea Nitrogen 17 mg/dL (8-24); Bun/Creatinine Ratio 29.2 (12.0-20.0); CO2, Blood 29 mmol/L (21-32); Calcium, Blood 8.5 mg/dL (8.5-10.1); Chloride, Blood 103 mmol/L (98-108); Creatinine, Blood 0.58 mg/dL (0.40-1.00); Glomerular Filtration Rate >60 (60-); Glucose, Blood 99 mg/dL (70-99); Potassium, Blood 3.6 mmol/L (3.5-5.5); Sodium, Blood 139 mmol/L (136-145)
--- NOTE | 2019-12-11 05:52 | NUR ---
Shift Summary patient has had multiple dk green stools tonight. she has a protective coccyx dressing on, redness on coccyx, no breakdown. patient is oriented to self and calls when she needs to be cleaned. no nausea or vomiting. for the first time since admissing pt is having symptoms of restless leg syndrome. No other acute changes.
--- NOTE | 2019-12-11 10:44 | NUR ---
Initial Visit: Pt admitted for small bowel obstruction. She had small bowel resection surgery. Pt reports that she feels uncomfortable today. She did not sleep well, she has restless leg syndrome and is feeling pain in her feet. She has gabapentin ordered but had refused it last night for unknown reasons. Her IV is hurting. She has PPN running. Pt reports that her IV somehow was pulled and she is concerned that it is now dislodged. Pt does have an advance directive at home, per . He is sitting at bedside. He is attentive and knows her health history well. He reports that he will bring the advance directive into the hospital. Instructed that a copy will be taken and scanned into our records for easy availability for providers and staff. Updated nurse Raya. IV was placed on standby. Fentanyl will be given for pt's pain.
--- NOTE | 2019-12-11 15:24 | NUR ---
JONAS DC'D AT THIS TIME.
--- NOTE | 2019-12-11 16:31 | NUR ---
NO ACUTE CHANGES SINCE ASSUMING CARE. PT DENIES PAIN, SOB, N/V. PPN DC'D PER ORDERS. CALL LIGHT WITHIN REACH. FAMILY AT BEDSIDE FOR SUPPORT.
--- NOTE | 2019-12-12 06:35 | NUR ---
PATIENT IS IN ISOLATION FOR +[facility] SAMPLE. SHE HAS ONLY HAD 2 EPISODES OF LIQUID STOOLS TONIGHT, EACH WERE A LARGE QUANTITY. SHE STATED THAT SHE SLEEP VERY WELL LAST NIGHT. NO ACUTE CHANGES.
--- NOTE | 2019-12-12 18:36 | NUR ---
SUMMARY: NO ACUTE CHANGE TODAY. PT WAS IN GOOD SPIRITS. TOLERATING DIET WELL, UP WITH PT/OT. DENIED PAIN TODAY. SURGICAL SITE WNL. POSSIBLE DC TOMORROW.
[2019-12-13 05:12] LABS: BASOPHILS ABSOLUTE AUTO 0.05 K/mm3 (0.00-0.23); BASOPHILS PERCENT AUTO 1 % (0-2); EOSINOPHILS ABSOLUTE AUTO 0.11 K/mm3 (0.00-0.68); EOSINOPHILS PERCENT AUTO 1 % (0-6); Hematocrit 32.7 % (33.0-51.0); Hemoglobin 10.4 g/dL (11.5-16.0); IMMATURE GRAN ABSOLUTE AUTO 0.08 K/mm3 (0.00-0.10); IMMATURE GRAN PERCENT AUTO 1 % (0-1); LYMPHOCYTES ABSOLUTE AUTO 1.61 K/mm3 (0.84-5.20); LYMPHOCYTES PERCENT AUTO 16 % (21-46); MONOCYTES ABSOLUTE AUTO 1.05 K/mm3 (0.16-1.47); MONOCYTES PERCENT AUTO 10 % (4-13); Mean Corpuscular HGB 30.1 pg (26.0-34.0); Mean Corpuscular HGB Conc 31.8 g/dL (31.5-36.5); Mean Corpuscular Volume 95 fL (80-100); Mean Platelet Volume 12.3 fL (9.1-12.4); NEUTROPHILS ABSOLUTE AUTO 7.24 K/mm3 (1.96-9.15); NEUTROPHILS PERCENT AUTO 71 % (41-73); Platelet Count 216 K/mm3 (150-400); RDW Coefficient Variation 11.8 % (11.7-14.2); RDW Standard Deviation 40.4 fL (35.1-46.3); Red Blood Cell Count 3.45 M/mm3 (3.80-5.20); White Blood Cell Count 10.14 K/mm3 (4.00-11.30)
[2019-12-13 05:27] LABS: Albumin, Blood 2.1 g/dL (3.4-5.0); Anion Gap 6 mmol/L (6-16); Blood Urea Nitrogen 17 mg/dL (8-24); Bun/Creatinine Ratio 20.7 (12.0-20.0); CO2, Blood 27 mmol/L (21-32); Chloride, Blood 110 mmol/L (98-108); Creatinine, Blood 0.82 mg/dL (0.40-1.00); Glomerular Filtration Rate >60 (60-); Glucose, Blood 79 mg/dL (70-99); Phosphorus, Blood 2.8 mg/dL (2.5-4.9); Potassium, Blood 3.9 mmol/L (3.5-5.5); Sodium, Blood 143 mmol/L (136-145)
--- NOTE | 2019-12-13 06:42 | NUR ---
SHIFT SUMMARY LYING IN POSITION ON HER LEFT SIDE WITH EYES CLOSED. WAKES EASILY WHEN NAME IS CALLED. DENIES PAIN, DISCOMFORT, OR FURTHER NEEDS AT THIS TIME. SAFETY MEASURES IN PLACE. WILL CONTINUE TO MONITOR.
[2019-12-13] MEDS ORDERED: ACET325 PO (14:39)
[2019-12-13] MEDS ORDERED: VANCOCIN HCL125 MG PO (14:54)
--- NOTE | 2019-12-13 15:50 | NUR ---
DISCHARGE: PACKET PRINTED PT EDUCATED. MEDS FAXED TO [facility] ON [address]. CECELIA GONZALES. WOUND VAC REMOVED AND MEDIPORE DRESSING APPLIED. PT LEFT UNIT IN [facility] WITH TIFFANIE PALACIO
== END 2019-12-13 16:00 | disposition home or self-care (01) | DRG 330 ==
LOC: ER 10:03 → SURS 15:26
PROVIDERS: Emergency Medicine; Family Medicine; Hospitalist; Nurse Practitioner Acute Care; Surgery; ADMIT Internal Medicine
PROC: 0DB80ZZ Excision of Small Intestine, Open Approach (ICD-10-PCS; principal; 2019-12-07 11:15)
DX: K56.52 Intestinal adhesions [bands] with complete obstruction (principal); E87.0 Hyperosmolality and hypernatremia; N39.0 Urinary tract infection, site not specified; A04.72 Enterocolitis due to Clostridium difficile, not specified as recurrent; G31.84 Mild cognitive impairment of uncertain or unknown etiology; M06.9 Rheumatoid arthritis, unspecified; I10 Essential (primary) hypertension; E11.51 Type 2 diabetes mellitus with diabetic peripheral angiopathy without gangrene; Z96.651 Presence of right artificial knee joint; E87.6 Hypokalemia; F32.9 Major depressive disorder, single episode, unspecified; M19.90 Unspecified osteoarthritis, unspecified site; I73.00 Raynaud's syndrome without gangrene; K21.9 Gastro-esophageal reflux disease without esophagitis; G25.81 Restless legs syndrome; M41.9 Scoliosis, unspecified; D69.6 Thrombocytopenia, unspecified; B95.2 Enterococcus as the cause of diseases classified elsewhere; K80.20 Calculus of gallbladder without cholecystitis without obstruction
CPT/HCPCS: 36415; 74018; 74177; 74250; 80048; 80053; 80069; 82947; 83690; 83735; 84100; 84132; 84478; 85025; 85027; 85610; 87324; 87493; 88305; 88307; 96374-59; 96375; 96376; 97110; 97116; 97162; 97166; 97530; 97535; 99285-25; C1751; J0330; J0360; J0610; J0696; J0744; J1170; J1650; J2405; J2704; J3010; J3411; J3475; J3480; J7030; J7040; J7060; J7120; J7131; Q9967

== ENCOUNTER → 2019-12-30 | Outpatient (CLI) | payer MEDICARE ==
[~2019-12-30] MED LIST changes: +ACET325 PO; +BUPR100ER PO; +CONJUGATED ESTROGENS 0.625 MG VAG; +D-MANNOSE PO; +Flunisolide25 ML; +MAGNESIUM250 MG PO; +OCUVITE ADULT1 EACH PO; +PROBIOTIC1 EAC2 PO; +VANCOCIN HCL125 MG PO; +VITAMIN C500 M1 PO; +Vitamin E600 UNIT PO
[2019-12-30 11:04] LABS: Source, Urine Clean Catch
[2019-12-30 12:44] LABS: Bilirubin, Urine Neg (Neg); Blood, Urine Neg (Neg); Glucose Qualitative, Urine Neg (Neg); Ketones, Urine Neg (Neg); Leukocyte Esterase, Urine 3+ (Neg); Nitrite, Urine Neg (Neg); Protein, Urine Neg (Neg); Urobilinogen, Urine NORM (Normal)
[2019-12-30 12:59] LABS: Appearance, Urine Clear (Clear); Color, Urine Pale Yellow (P-Yellow)
[2019-12-30 13:00] LABS: Bacteria Few /hpf; Red Blood Cells, Urine 0-2 /hpf (0-2); Squamous Epithelial Cells Rare /hpf (Few)
== END | disposition home or self-care (01) ==
LOC: LAB SHORT 10:53 → LAB SRC 10:53 → LAB FUT 12-27 14:30
PROVIDERS: Physician Assistant
DX: N39.0 Urinary tract infection, site not specified (principal)
CPT/HCPCS: 81001; 87077; 87086; 87186

== ENCOUNTER → 2020-01-18 | Outpatient (CLI) | payer MEDICARE | END | disposition home or self-care (01) | LOC: LAB SHORT 15:31 → LAB 15:31 | DX: R10.2 Pelvic and perineal pain (principal) | CPT/HCPCS: 87086 ==

== ENCOUNTER → 2020-03-28 | Outpatient (CLI) | payer MEDICARE | END | disposition home or self-care (01) | LOC: LAB 15:04 → LAB SHORT 15:04 | DX: N39.0 Urinary tract infection, site not specified (principal) | CPT/HCPCS: 87086 ==

== ENCOUNTER 2020-10-23 09:07 | Day surgery (SDC) | payer MEDICARE ==
[~2020-10-23] VITALS: Ht 149.9 cm; Wt 51.4 kg
== END 2020-10-23 12:20 | disposition home or self-care (01) ==
LOC: ORSCSDS 09:07
DX: Z12.11 Encounter for screening for malignant neoplasm of colon (principal); Z86.010 Personal history of colon polyps; D12.2 Benign neoplasm of ascending colon; D12.3 Benign neoplasm of transverse colon; D12.0 Benign neoplasm of cecum; K57.30 Diverticulosis of large intestine without perforation or abscess without bleeding; K64.4 Residual hemorrhoidal skin tags; K21.9 Gastro-esophageal reflux disease without esophagitis; Z79.899 Other long term (current) drug therapy
CPT/HCPCS: 88305; J2704; J7120

== ENCOUNTER 2022-10-27 12:24 | Emergency (ER) | payer MEDICARE ==
[~2022-10-27] VITALS: Ht 162.6 cm; Wt 49.9 kg
[2022-10-27 15:12] LABS: BASOPHILS ABSOLUTE AUTO 0.03 K/mm3 (0.00-0.23); BASOPHILS PERCENT AUTO 0 % (0-2); EOSINOPHILS PERCENT AUTO 0 % (0-6); Hemoglobin 12.5 g/dL (11.5-16.0); IMMATURE GRAN ABSOLUTE AUTO 0.07 K/mm3 (0.00-0.10); IMMATURE GRAN PERCENT AUTO 1 % (0-1); LYMPHOCYTES ABSOLUTE AUTO 0.96 K/mm3 (0.84-5.20); LYMPHOCYTES PERCENT AUTO 7 % (21-46); MONOCYTES ABSOLUTE AUTO 0.91 K/mm3 (0.16-1.47); MONOCYTES PERCENT AUTO 7 % (4-13); Mean Corpuscular HGB 30.3 pg (26.0-34.0); Mean Corpuscular HGB Conc 33.8 g/dL (31.5-36.5); Mean Corpuscular Volume 90 fL (80-100); NEUTROPHILS ABSOLUTE AUTO 11.16 K/mm3 (1.96-9.15); NEUTROPHILS PERCENT AUTO 85 % (41-73); Platelet Count 156 K/mm3 (150-400); RDW Coefficient Variation 11.9 % (11.7-14.2); RDW Standard Deviation 39.3 fL (35.1-46.3); Red Blood Cell Count 4.12 M/mm3 (3.80-5.20); White Blood Cell Count 13.13 K/mm3 (4.00-11.30)
[2022-10-27 15:33] LABS: Albumin, Blood 3.4 g/dL (3.4-5.0); Albumin/Globulin Ratio 0.8 (0.8-1.8); Bilirubin, Total 1.1 mg/dL (0.1-1.0); Bun/Creatinine Ratio 23.3 (12.0-20.0); Calcium, Blood 9.1 mg/dL (8.5-10.1); Creatinine, Blood 0.6 mg/dL (0.40-1.00); Globulin, Blood 4.2 g/dL (2.2-4.0); Potassium, Blood 3.1 mmol/L (3.5-5.5); Total Protein, Blood 7.6 g/dL (6.4-8.2)
[2022-10-27 15:44] LABS: Source, Urine Clean Catch
[2022-10-27 15:51] LABS: Appearance, Urine Cloudy (Clear); Bilirubin, Urine Neg (Neg); Blood, Urine 2+ (Neg); Color, Urine Yellow (P-Yellow); Glucose Qualitative, Urine Neg (Neg); Ketones, Urine Neg (Neg); Leukocyte Esterase, Urine 2+ (Neg); Nitrite, Urine Pos (Neg); Protein, Urine 2+ (Neg); Urobilinogen, Urine NORM (Normal)
[2022-10-27 17:02] LABS: Bacteria Many /hpf; Mucus Light (0-Heavy); Squamous Epithelial Cells Rare /hpf (Few); White Blood Cells, Urine TNTC /hpf (0-5)
[2022-10-27] MEDS ORDERED: CEFD300 PO (17:08)
== END 2022-10-27 17:28 | disposition home or self-care (01) ==
LOC: ER 12:24
PROVIDERS: Emergency Medicine
DX: M54.9 Dorsalgia, unspecified (principal); N39.0 Urinary tract infection, site not specified; W06.XXXA Fall from bed, initial encounter; Z79.899 Other long term (current) drug therapy; Z88.8 Allergy status to other drugs, medicaments and biological substances
CPT/HCPCS: 36415; 70450; 72080; 80053; 81001; 85025; A9270; J0696

== ENCOUNTER → 2022-11-06 | Outpatient (CLI) | payer MEDICARE ==
[~2022-11-06] MED LIST changes: +CEFD300 PO
[2022-11-06 16:57] LABS: Adenovirus F 40/41 Not Detected (NOT DETECT); Astrovirus Not Detected (NOT DETECT); Campylobacter Sp Not Detected (NOT DETECT); Cryptosporidium Not Detected (NOT DETECT); Cyclospora Cayetanensis Not Detected (NOT DETECT); E. Coli O157 Not Detected (NOT DETECT); Entamoeba Histolytica Not Detected (NOT DETECT); Enteroaggregative E. coli-EAEC Not Detected (NOT DETECT); Enteropathogenic E. coli-EPEC Not Detected (NOT DETECT); Enterotoxigenic E. coli-ETEC Not Detected (NOT DETECT); Giardia Lamblia Not Detected (NOT DETECT); Norovirus GI/GII Not Detected (NOT DETECT); Plesiomonas Shigelloides Not Detected (NOT DETECT); Rotavirus A Not Detected (NOT DETECT); Salmonella Sp Not Detected (NOT DETECT); Sapovirus Not Detected (NOT DETECT); Shiga Toxin-prod E. coli-STEC Not Detected (NOT DETECT); Shigella/Enteroin E. coli-EIEC Not Detected (NOT DETECT); Vibrio Cholerae Not Detected (NOT DETECT); Vibrio Sp Not Detected (NOT DETECT); Yersinia Enterocolitica Not Detected (NOT DETECT)
== END | disposition home or self-care (01) ==
LOC: LAB SHORT 09:00
PROVIDERS: Family Medicine
DX: R19.7 Diarrhea, unspecified (principal)
CPT/HCPCS: 87507

== ENCOUNTER → 2022-12-12 | Outpatient (CLI) | payer MEDICARE ==
[2022-12-12 14:55] LABS: Campylobacter Sp Not Detected (NOT DETECT); Enteroaggregative E. coli-EAEC Not Detected (NOT DETECT); Enteropathogenic E. coli-EPEC Not Detected (NOT DETECT); Enterotoxigenic E. coli-ETEC Not Detected (NOT DETECT); Plesiomonas Shigelloides Not Detected (NOT DETECT); Salmonella Sp Not Detected (NOT DETECT); Shiga Toxin-prod E. coli-STEC Not Detected (NOT DETECT); Vibrio Cholerae Not Detected (NOT DETECT); Vibrio Sp Not Detected (NOT DETECT); Yersinia Enterocolitica Not Detected (NOT DETECT)
[2022-12-12 14:56] LABS: Adenovirus F 40/41 Not Detected (NOT DETECT); Astrovirus Not Detected (NOT DETECT); Cryptosporidium Not Detected (NOT DETECT); Cyclospora Cayetanensis Not Detected (NOT DETECT); E. Coli O157 Not Detected (NOT DETECT); Entamoeba Histolytica Not Detected (NOT DETECT); Giardia Lamblia Not Detected (NOT DETECT); Norovirus GI/GII Not Detected (NOT DETECT); Rotavirus A Not Detected (NOT DETECT); Sapovirus Not Detected (NOT DETECT); Shigella/Enteroin E. coli-EIEC Not Detected (NOT DETECT)
== END | disposition home or self-care (01) ==
LOC: LAB SHORT 11:19 → LAB FUT 11-05 17:45
PROVIDERS: Family Medicine
DX: R19.7 Diarrhea, unspecified (principal)
CPT/HCPCS: 87507

== ENCOUNTER 2023-09-07 09:08 | Day surgery (SDC) | payer MEDICARE ==
[~2023-09-07] VITALS: Ht 152.4 cm; Wt 50.0 kg
[2023-09-07] MEDS ORDERED: ASPI81CH PO (09:39)
[2023-09-07] MEDS ORDERED: CHLO4 PO (09:39)
[2023-09-07] MEDS ORDERED: Flonase 0.05% N16 GM (09:40)
[2023-09-07] MEDS ORDERED: EXELON1 EA11 TOP (09:40)
[2023-09-07 10:53] VITALS: BP 115/66
== END 2023-09-07 10:48 | disposition home or self-care (01) ==
LOC: ORSCSDS 09:08
PROVIDERS: Specialist
PROC: 0DJD8ZZ Inspection of Lower Intestinal Tract, Via Natural or Artificial Opening Endoscopic (ICD-10-PCS; principal; 2023-09-07 10:00)
DX: Z12.11 Encounter for screening for malignant neoplasm of colon (principal); Z86.010 Personal history of colon polyps; K64.8 Other hemorrhoids; K57.30 Diverticulosis of large intestine without perforation or abscess without bleeding; E78.5 Hyperlipidemia, unspecified; Z79.899 Other long term (current) drug therapy
CPT/HCPCS: J2704; J7120

== ENCOUNTER 2024-08-26 21:12 | Inpatient (IN) | payer MEDICARE ==
[~2024-08-26] VITALS: Ht 152.4 cm; Wt 51.8 kg
[~2024-08-26 21:12] MED LIST changes: +ASPI81CH PO; +EXELON1 EA11 TOP; +Flonase 0.05% N16 GM; -MELATONIN5 M1 PO
[2024-08-26] MEDS ORDERED: Morphine Sulfate 4 MG/1 ML Injection IV ONE (23:10)
[2024-08-26 23:20] LABS: Hematocrit 38.7 % (33.0-51.0); Hemoglobin 12.7 g/dL (11.5-16.0); Mean Corpuscular HGB Conc 32.8 g/dL (31.5-36.5); Mean Corpuscular Volume 92 fL (80-100); Mean Platelet Volume 11.7 fL (9.1-12.4); Platelet Count 154 K/mm3 (150-400); RDW Coefficient Variation 12.6 % (11.7-14.2); RDW Standard Deviation 41.6 fL (35.1-46.3); Red Blood Cell Count 4.23 M/mm3 (3.80-5.20); White Blood Cell Count 14.83 K/mm3 (4.00-11.30)
[2024-08-26 23:36] LABS: Bun/Creatinine Ratio 25.7 (12.0-20.0); Calcium, Blood 8.9 mg/dL (8.5-10.1); Creatinine, Blood 0.93 mg/dL (0.40-1.00); Potassium, Blood 3.7 mmol/L (3.5-5.5)
[2024-08-26 23:39] LABS: International Normalized Ratio 1.09; Prothrombin Time Results 11.6 Sec (9.7-11.5)
[2024-08-26] MEDS ORDERED: FentaNYL Citrate 50 MCG/ML 2 ML Injection IV PRN (23:50)
[2024-08-26] MEDS ORDERED: FLU VACC TS2024-25(6MOS UP)/PF 45 MCG/0.5 ML SYRINGE IM SCH (23:50)
[2024-08-26] MEDS ORDERED: NS 1,000 ML IV SCH (23:50)
[2024-08-26 23:53] LABS: BAND PERCENT MAN 5 % (0-8); BASOPHILS PERCENT MAN 0 % (0-2); EOSINOPHILS ABSOLUTE MAN 0.14 K/mm3 (0.00-0.68); EOSINOPHILS PERCENT MAN 1 % (0-6); LYMPHOCYTES % ATYPICAL MANUAL 1 % (0-0); LYMPHOCYTES ABSOLUTE MAN 2.66 K/mm3 (0.84-5.20); LYMPHOCYTES PERCENT MAN 17 % (21-46); MONOCYTES ABSOLUTE MAN 0.44 K/mm3 (0.16-1.47); MONOCYTES PERCENT MAN 3 % (4-13); NEUTROPHILS ABSOLUTE MAN 11.56 K/mm3 (1.96-9.15); SEG NEUTROPHILS PERCENT MAN 73 % (41-73); TOTAL CELLS COUNTED 100
[2024-08-26] MEDS ORDERED: Ondansetron HCl 2 MG / ML 2ML Vial IV PRN (23:55)
[2024-08-27] VITALS (20 sets, daily range): BP systolic 143–195; BP diastolic 71–138
[2024-08-27] MEDS ORDERED: FentaNYL Citrate 50 MCG/ML 2 ML Injection ONE ×2 (00:23→19:04)
[2024-08-27] MEDS ORDERED: PROP60 PO (00:33)
[2024-08-27] MEDS ORDERED: BUPR150ER PO (01:33)
[2024-08-27] MEDS ORDERED: HydrALAZINE HCl 20 MG / ML 1ML Vial IV PRN ×2 (01:45→21:20)
[2024-08-27] MEDS ORDERED: Melatonin 3 MG Tab PO SCH (01:45)
[2024-08-27] MEDS ORDERED: TraZODone HCl 50 MG Tab PO SCH (01:45)
[2024-08-27] MEDS ORDERED: FentaNYL Citrate 50 MCG/ML 2 ML Injection IV PRN (03:50)
[2024-08-27 04:57] LABS: BASOPHILS ABSOLUTE AUTO 0.08 K/mm3 (0.00-0.23); BASOPHILS PERCENT AUTO 1 % (0-2); EOSINOPHILS ABSOLUTE AUTO 0.01 K/mm3 (0.00-0.68); EOSINOPHILS PERCENT AUTO 0 % (0-6); Hematocrit 38.8 % (33.0-51.0); IMMATURE GRAN PERCENT AUTO 1 % (0-1); LYMPHOCYTES ABSOLUTE AUTO 1.23 K/mm3 (0.84-5.20); LYMPHOCYTES PERCENT AUTO 9 % (21-46); MONOCYTES ABSOLUTE AUTO 0.78 K/mm3 (0.16-1.47); MONOCYTES PERCENT AUTO 5 % (4-13); Mean Corpuscular HGB 29.8 pg (26.0-34.0); Mean Corpuscular HGB Conc 33.5 g/dL (31.5-36.5); Mean Corpuscular Volume 89 fL (80-100); Mean Platelet Volume 12.1 fL (9.1-12.4); NEUTROPHILS PERCENT AUTO 85 % (41-73); Platelet Count 144 K/mm3 (150-400); RDW Coefficient Variation 12.5 % (11.7-14.2); RDW Standard Deviation 41.1 fL (35.1-46.3); Red Blood Cell Count 4.36 M/mm3 (3.80-5.20)
[2024-08-27 05:29] LABS: Albumin, Blood 3.5 g/dL (3.4-5.0); Bilirubin, Total 0.8 mg/dL (0.1-1.0); Bun/Creatinine Ratio 26.9 (12.0-20.0); Calcium, Blood 9.3 mg/dL (8.5-10.1); Creatinine, Blood 0.85 mg/dL (0.40-1.00); Globulin, Blood 3.4 g/dL (2.2-4.0); Potassium, Blood 3.6 mmol/L (3.5-5.5); Total Protein, Blood 6.9 g/dL (6.4-8.2)
[2024-08-27] MEDS ORDERED: Acetaminophen 325 MG TABLET PO PRN (06:10)
--- NOTE | 2024-08-27 06:12 | NUR ---
SHIFT SUMMARY NOC PT A/O X 2. ADMIT FROM ED WITH R HIP FX FROM [facility] AT HOME. ORTHOPEDIC CONSULT WITH DR BERMAN CALLED IN. PT NPO STATUS FOR POSSIBLE SURGICAL INTERVENTION TODAY. PT PAIN BEING MANAGED PER EMAR. PT ON TELE SINUS RHYTHM IN 70'S. BP IN 190'S UPON ADMIT, IV HYDRALAZINE GIVEN AND DECREASED TO 140'S. PUREWICK IN PLACE DUE TO R HIP FX PAIN. PT STAYED WITH PT TO KEEP PT CALM. PT CURRENTLY RESTING WITH BED ALARM ON, BED IN LOWEST POSITION, AND CALL LIGHT WITHIN REACH.
[2024-08-27] MEDS ORDERED: Polyethylene Glycol 3350 17 gm PO PRN (07:30)
[2024-08-27] MEDS ORDERED: Aspirin 81 MG Chew PO SCH (09:00)
[2024-08-27] MEDS ORDERED: buPROPion HCL 150 MG TAB.SR.12H PO SCH (09:00)
[2024-08-27] MEDS ORDERED: RIVASTIGMINE 9.5 MG/24 HR TOP SCH (09:00)
[2024-08-27] MEDS ORDERED: Sertraline HCl 50 MG Tab PO SCH (09:00)
[2024-08-27] MEDS ORDERED: Propranolol HCL 60 MG CAPCR PO SCH (09:00)
[2024-08-27] MEDS ORDERED: Cholecalciferol 1000 Unit Tablet (=25MCG) PO SCH (09:00)
[2024-08-27] MEDS ORDERED: Fluticasone 0.05% Nasal Spray SCH (09:00)
[2024-08-27] MEDS ORDERED: Sertraline HCl 100 MG Tab PO SCH (09:00)
[2024-08-27 16:10] LABS: Source, Urine Foley catheter
[2024-08-27 16:21] LABS: Bilirubin, Urine Neg (Neg); Blood, Urine 3+ (Neg); Glucose Qualitative, Urine Neg (Neg); Ketones, Urine Neg (Neg); Leukocyte Esterase, Urine Neg (Neg); Nitrite, Urine Neg (Neg); Protein, Urine 2+ (Neg); Urobilinogen, Urine NORM (Normal)
[2024-08-27] MEDS ORDERED: propofoL 20 ML IV ONE ×2 (16:34→18:44)
[2024-08-27 16:41] LABS: Appearance, Urine Hazy (Clear); Color, Urine Pale Yellow (P-Yellow)
[2024-08-27 16:43] LABS: Bacteria Many /hpf; Squamous Epithelial Cells Few /hpf (Few)
[2024-08-27] MEDS ORDERED: Lactated Ringer's 1,000 ML IV ONE (17:49)
--- NOTE | 2024-08-27 18:03 | NUR ---
SHIFT SUMMARY; PATIENT HAS BEEN NPO ALL DAY FOR SURGERY. DID COME TO ROOM TO CONSENT PATIENT AND HER SPOUSE WAS ABLE TO SIGN PAPERWORK FOR HER SHE HAS DIAGNOSED DEMENTIA. FORBES CATHETER IS PLACED PER VERBAL ORDER HE WANTS PATIEN TO HAVE A EPIDURAL DURING SURGERY SHE HAS NEGATIVE REACTIONS TO ANESTHESIA.
[2024-08-27] MEDS ORDERED: CeFAZolin Sodium 2,000 MG in NS 100 ML IV SCH (18:25)
[2024-08-27] MEDS ORDERED: Tranexamic Acid 100 ML IV SCH (18:25)
[2024-08-27] MEDS ORDERED: ePHEDrine Sulfate 50 MG/ML 1ML Injection ONE (19:33)
[2024-08-27] MEDS ORDERED: Dexamethasone Sod Phos 10 MG/ML 1ML VIAL ONE (19:40)
[2024-08-27] MEDS ORDERED: Ondansetron HCl 2 MG / ML 2ML Vial ONE (19:40)
[2024-08-27] MEDS ORDERED: EpiNEPhrine 1 MG/1 ML 1ML Vial ONE (20:15)
[2024-08-27] MEDS ORDERED: Bupivacaine 0.5% HCl 5 MG/ML 30MLVIAL ONE (20:15)
[2024-08-27] MEDS ORDERED: Bupivacaine 0.5% W/EPI 1:200000 SDV 30ML INJ ONE (20:18)
[2024-08-27] MEDS ORDERED: Docusate Sodium/Senna 1 Tab PO SCH (21:00)
--- NOTE | 2024-08-27 22:17 | NUR ---
TOOK REPORT FROM SKI PATROLLER ROSE @ 2134. PT ARRIVED BACK ON UNIT @ 215 WITH SPOUSE, ANDREI STILL IN PLACE. POST OP VS PROTOCOL INITIATED.
[2024-08-28 00:23] VITALS: BP 161/81
[2024-08-28 01:48] VITALS: BP 168/91
[2024-08-28 03:22] VITALS: BP 167/82
[2024-08-28] MEDS ORDERED: QUEtiapine Fumarate 25 MG Tab PO PRN (03:30)
[2024-08-28] MEDS ORDERED: OxyCODONE HCL 5 MG TAB PO PRN ×2 (03:30→11:10)
[2024-08-28] MEDS ORDERED: CeFAZolin Sodium 2,000 MG in NS 100 ML IV SCH (04:00)
--- NOTE | 2024-08-28 06:01 | NUR ---
NOTIFIED BY ACOUSTICAL TILE DRILL PRESS OPERATOR PT HAVING MILD ST DEPRESSION IN 2 LEADS. WHEN ASSESSED PT ASYMPTOMATIC FOR CP, SOB, PALPITATIONS. PT HAVING C/O OF SEVERE CONSTIPATION, AND ORDER FOR MIRALAX OBTAINED. WILL CONTINUE TO MONITOR PT WITH CONTINOUS CARDIAC MONITORING.
[2024-08-28] MEDS ORDERED: Polyethylene Glycol 3350 17 gm PO PRN (06:05)
--- NOTE | 2024-08-28 06:38 | NUR ---
SHIFT SUMMARY NOC PT A/O TO SELF AND SPOUSE. PLEASANTLY CONFUSED AND COOPERATIVE WITH CARE. POST OP R HIP FX REPAIR LAST NIGHT. BP MAINTAINING IN 150'S-160'S, BUT BELOW PARAMETER TO GIVE PRN HYDRALAZINE. PT HAS AQUACEL IN PLACE COVERING CLOSURE TYSHAWN ON R HIP. PT PAIN BEING MANAGED PER EMAR. TOWARDS END OF SHIFT PT HAVING C/O OF CONSTIPATION, MIRALAX GIVEN WITH PRUNE JUICE. TECHNICAL TRAINER NOTIFIED RN THAT PT HAD MILD ST DEPRESSION, PT ASYMPTOMATIC. FORBES IN PLACE DRAINING TO GRAVITY. PT CURRENTLY RESTING WITH SPOUSE AT BEDSIDE, BED ALARM ON AND IN LOWEST POSITION, AND CALL LIGHT WITHIN REACH.
[2024-08-28 07:28] VITALS: BP 147/80
[2024-08-28] MEDS ORDERED: Acetaminophen 500 MG Tab PO SCH (08:00)
[2024-08-28] MEDS ORDERED: FentaNYL Citrate 50 MCG/ML 2 ML Injection IV PRN (11:05)
[2024-08-28] MEDS ORDERED: NS 250 ML IV PRN (12:15)
[2024-08-28 15:32] VITALS: BP 150/84
--- NOTE | 2024-08-28 16:32 | NUR ---
SHIFT SUMMARY; PATIENT WORKED WITH PT TODAY WITH GOOD RESULTS. SHE WAS ABLE TO STAND WITH MUCH ASSIST. PER PT PATIENT CAN MOVE WITH A 2 PERSON ASSIST. PATIENT PLACED BACK TO BED AND IS RESTING COMFORTABLY AFTER 25MCG FENTANYL FOR SEVERE PAIN THIS AFTERNOON. FORBES CATHETER TO DOWN DRAIN. HER LUNGS ARE CLEAR TO AUSCULTATION SHE IS NOT FEBRILE. HER VITALS ARE STABLE. SHE REMAINS HYPERTENSIVE HER PULSE IS 70'S SHE IS NSR AND ON TELE. SHE IS ON ROOM AIR. AQUACEL TO RIGHT HIP CLEAN DRY AND INTACT. CAME TO ROOM TO SEE PATIENT TODAY AND PATIENT VERBALIZED THAT SHE DID NOT KNOW SHE HAD A HIP REPLACEMENT SURGERY. PATIENT IS ORIENTED TO PERSON AT THIS TIME. SHE IS SLEEPING SOUNDLY AND ROUSES EASILY TO VERBAL STIMULI. WILL CONTINUE TO MONITOR CLOSELY UNTIL HAND OFF AND REPORT TO ONCOMING NOC SHIFT RN.
[2024-08-28 20:53] VITALS: BP 99/74
[2024-08-28] MEDS ORDERED: Crestor40 MG PO (21:32)
[2024-08-29 04:36] VITALS: BP 143/66
[2024-08-29 04:40] LABS: Hematocrit 30.2 % (33.0-51.0); Hemoglobin 9.9 g/dL (11.5-16.0); Mean Corpuscular HGB 30.2 pg (26.0-34.0); Mean Corpuscular HGB Conc 32.8 g/dL (31.5-36.5); Mean Corpuscular Volume 92 fL (80-100); Mean Platelet Volume 11.8 fL (9.1-12.4); Platelet Count 100 K/mm3 (150-400); RDW Coefficient Variation 13.3 % (11.7-14.2); RDW Standard Deviation 45.8 fL (35.1-46.3); Red Blood Cell Count 3.28 M/mm3 (3.80-5.20); White Blood Cell Count 11.76 K/mm3 (4.00-11.30)
[2024-08-29 05:04] LABS: Albumin, Blood 2.6 g/dL (3.4-5.0); Anion Gap 10 mmol/L (3-11); Blood Urea Nitrogen 19 mg/dL (8-24); Bun/Creatinine Ratio 24.8 (12.0-20.0); CO2, Blood 25 mmol/L (21-32); Calcium, Blood 8.2 mg/dL (8.5-10.1); Chloride, Blood 104 mmol/L (98-108); Creatinine, Blood 0.77 mg/dL (0.40-1.00); Glomerular Filtration Rate 77 (60-); Glucose, Blood 115 mg/dL (70-99); Phosphorus, Blood 2.3 mg/dL (2.5-4.9); Potassium, Blood 3.9 mmol/L (3.5-5.5); Sodium, Blood 135 mmol/L (136-145)
--- NOTE | 2024-08-29 05:16 | NUR ---
SHIFT SUMMARY NOC PT A/O TO SELF AND SPOUSE. PLEASANTLY CONFUSED AND COOPERATIVE WITH CARE. VSS. PT HAS NOT REQUIRED PAIN RX AND DECLINED SCHEDULED DOSE OF TYLENOL. PT HAS SLEPT THROUGH MAJORITY OF SHIFT WITH NO RESTLESSNESS. AQUACEL ON R HIP C/D/I WITH NO STRIKING NOTED. FORBES IN PLACE PATENT AND DRAINING TO GRAVITY. ON TELE SINUS RHYTHM/BBB IN 70'S. PT HAS NOT HAD C/O OF CONSTIPATION. SPOUSE HAS BEEN @ BEDSIDE T/O SHIFT TO ASSIST WITH POTENTIAL AGITATION. PT CURRENTLY RESTING WITH BED ALARM ON, BED IN LOWEST POSITION, AND CALL LIGHT WITHIN REACH.
[2024-08-29 07:14] VITALS: BP 141/70
[2024-08-29 13:29] LABS: SARS-Cov-2 (COVID-19) PCR, MMC NEGATIVE (NEGATIVE)
[2024-08-29] MEDS ORDERED: AZO CRANBERRY PO (13:57)
[2024-08-29] MEDS ORDERED: SENN187 PO (14:00)
[2024-08-29] MEDS ORDERED: QUET25 PO (14:01)
[2024-08-29] MEDS ORDERED: Norco 5-325 Ta1 EACH PO (14:01)
[2024-08-29] MEDS ORDERED: ENOX40I SC (14:03)
--- NOTE | 2024-08-29 16:31 | NUR ---
PT RESTING QUIETLY AT AT START OF SHIFT. DECLINED BREAKFAST, BUT LATER REQUESTED ENSURE. DR JOHNSON IN TO SEE PT AND THEN INDUSTRIAL CLEANING TECHNICIAN. PT REQUESTING TO GO TO REHAB AT [facility] IF POSSIBLE. INDUSTRIAL CLEANING TECHNICIAN ABLE TO ARRANGE TX. PT'S TO RM THIS AM AND STAYED ALL DAY, NOT LEAVING UNTIL PT PICKED UP VIA W/C FOR TX.DR BERMAN IN TO SEE PT THIS AFTERNOON. DRSG CHANGE ORDERS GIVEN. DRSG C/D/I AT THIS TIME AND TO REMAIN FOR 7 DAYS, THEN CHANGE AND APPLY NEW ONE JUST LIKE IT. PT ABLE TO STAND PIVOT TO W/C CAREFULLY. PT VERY WEAK AND DECONDITIONED, NEEDING THERAPY. ALL BELONGINGS WENT WITH PT, ASSISTED BY .
== END 2024-08-29 16:40 | DRG 522 ==
LOC: ER 21:12 → MEDS 23:48
PROVIDERS: Emergency Medicine; Hospitalist; Internal Medicine; Orthopaedic Surgery Sports Medicine; ADMIT Internal Medicine
PROC: 0SRR0JZ Replacement of Right Hip Joint, Femoral Surface with Synthetic Substitute, Open Approach (ICD-10-PCS; principal; 2024-08-27 14:00)
DX: S72.001A Fracture of unspecified part of neck of right femur, initial encounter for closed fracture (principal); F05 Delirium due to known physiological condition; W01.0XXA Fall on same level from slipping, tripping and stumbling without subsequent striking against object, initial encounter; M06.9 Rheumatoid arthritis, unspecified; M19.90 Unspecified osteoarthritis, unspecified site; G62.9 Polyneuropathy, unspecified; I10 Essential (primary) hypertension; E78.5 Hyperlipidemia, unspecified; G30.9 Alzheimer's disease, unspecified; F02.80 Dementia in other diseases classified elsewhere, unspecified severity, without behavioral disturbance, psychotic disturbance, mood disturbance, and anxiety; Z87.19 Personal history of other diseases of the digestive system; Z90.89 Acquired absence of other organs; Z96.651 Presence of right artificial knee joint; Z88.1 Allergy status to other antibiotic agents; Z88.8 Allergy status to other drugs, medicaments and biological substances; Z91.018 Allergy to other foods; Z79.82 Long term (current) use of aspirin; Z79.899 Other long term (current) drug therapy; S00.93XA Contusion of unspecified part of head, initial encounter
CPT/HCPCS: 36415; 70450; 73502; 73560-RT; 80048; 80053; 80069; 81001; 83735; 83880; 85025; 85027; 85610; 85730; 87086; 93005; 93010; 96374; 97162; 97530; 99285-25; A9270; C1776; J0171; J0360; J0690; J1100; J2270; J2405; J2704; J3010; J7030; J7120; U0002